=== PATIENT | female | born 1960 | race Caucasian/White ===

== ENCOUNTER 2017-11-14 07:06 | Day surgery (SDC) | payer BC ==
[~2017-11-14] VITALS: Ht 151.1 cm; Wt 79.4 kg
[~2017-11-14 07:06] MED LIST: AMOXICILLIN500 MG PO; ANACIN 400-32 M1 TAB PO; FLONASE NASAL50 MCG; MAGNESIUM250 M1 PO; MELOXICAM15 MG PO; MULTIVITAMI9 PO; RESTLESS LEG PO; TIZANIDINE2 MG PO; ZINC50 M1 PO
[2017-11-14] MEDS ORDERED: TYLENOL 500MG TAB PO (07:32)
[2017-11-14 13:09] VITALS: BP 122/74
== END 2017-11-14 10:10 | disposition home or self-care (01) | DRG 951 ==
LOC: ENDO 07:06
PROVIDERS: ATTEND Surgery
PROC: 0DJD8ZZ Inspection of Lower Intestinal Tract, Via Natural or Artificial Opening Endoscopic (ICD-10-PCS; principal; 2017-11-14)
DX: Z12.11 Encounter for screening for malignant neoplasm of colon (principal)